=== PATIENT | female | born 1930 | race Caucasian/White ===

== ENCOUNTER → 2017-06-20 | Outpatient (CLI) | payer MEDICARE, OTHER ==
[2015-08-06 06:00] VITALS: BP 145/81
--- NOTE | 2017-06-20 17:17 | RAD ---
DATE: 06/20/2017 EXAM: MAMMO HAVEN SCREENING BILATERAL HISTORY: Routine screening COMPARISON: 07/14/2010 This study was interpreted with the benefit of Computerized Aided Detection (CAD). The breast parenchyma shows scattered fibroglandular densities. Breast parenchyma level B. FINDINGS: 2-D and 3-D tomosynthesis imaging was performed in CC and MLO projections. No new or enlarging breast densities are seen. Benign type calcifications are present. No suspicious microcalcifications have developed. IMPRESSION: Stable mammograms without evidence of malignancy. BI-RADS CATEGORY: 2 BENIGN FINDING(S) RECOMMENDED FOLLOW-UP: 12M 12 MONTH FOLLOW-UP PQRS compliance statement: Patient information was entered into a reminder system with a target due date for the next mammogram. Mammography is a sensitive method for finding small breast cancers, but it does not detect them all and is not a substitute for careful clinical examination. A negative mammogram does not negate a clinically suspicious finding and should not result in delay in biopsying a clinically suspicious abnormality. "Our facility is accredited by the [employer] Mammography [employer]."
== END | disposition home or self-care (01) ==
LOC: MAMMO 13:51
PROVIDERS: ATTEND Family Medicine
DX: Z12.31 Encounter for screening mammogram for malignant neoplasm of breast (principal)
CPT/HCPCS: 77063; G0202; 77067

== ENCOUNTER → 2018-06-23 | Outpatient (CLI) | payer MEDICARE, OTHER ==
[2015-08-06 06:00] VITALS: BP 145/81
--- NOTE | 2018-06-24 16:14 | RAD ---
Indication: Postmenopausal screening for osteoporosis. Follow-up study. COMPARISON: May 03, 2016.. Bone Density: -BMD: (g/cm2) - AP Spine Total (L1-L4).......... 0.859. - Total right Hip................. 0.659. T-Score: - AP Spine Total (L1-L4)......... -2.7. - Total right Hip................. -2.4. Z-Score: - AP Spine Total (L1-L4).......... -1.1. - Total right Hip................. -0.3. World Health Organization criteria for BMD interpretation classify patients as Normal (T-score at or above -1.0), Osteopenic (T-score between -1.0 and -2.5), or Osteoporotic (T-score at or below -2.5). Impression: 1. AP Spine Total L1-L4--- osteoporosis. Since the previous study, there has been an increase in the BMD of approximately 9%. 2. Total right Hip--- osteopenia. Since the previous study, there has been no significant change. Electronically signed by: Lacho Sandra MD (06/24/2018 4:11 PM) [id number]
--- NOTE | 2018-06-24 16:52 | RAD ---
DATE: 06/23/2018 EXAM: DIGITAL SCREEN BILAT W/CAD HISTORY: Routine screening COMPARISON: 07/14/2010, 06/20/2017 screening mammographic exams This study was interpreted with the benefit of Computerized Aided Detection (CAD). Breast Density: SCATTERED The breast parenchyma shows scattered fibroglandular densities. Breast parenchyma level B. FINDINGS: Benign-appearing left axillary lymph node is present. No suspicious calcification cluster or mass. No distortion in the interval. IMPRESSION: Benign findings. BI-RADS CATEGORY: 2 BENIGN FINDING(S) RECOMMENDED FOLLOW-UP: 12M 12 MONTH FOLLOW-UP PQRS compliance statement: Patient information was entered into a reminder system with a target due date in one year for the next mammogram. Mammography is a sensitive method for finding small breast cancers, but it does not detect them all and is not a substitute for careful clinical examination. A negative mammogram does not negate a clinically suspicious finding and should not result in delay in biopsying a clinically suspicious abnormality. "Our facility is accredited by the [employer] Mammography [employer]."
== END | disposition home or self-care (01) ==
LOC: MAMMO 14:00
PROVIDERS: ATTEND Family Medicine
DX: Z12.31 Encounter for screening mammogram for malignant neoplasm of breast (principal); M81.0 Age-related osteoporosis without current pathological fracture; M85.88 Other specified disorders of bone density and structure, other site
CPT/HCPCS: 77067; 77080

== ENCOUNTER → 2021-11-24 | Outpatient (CLI) | payer MEDICARE, OTHER ==
[2015-08-06 06:00] VITALS: BP 145/81
--- NOTE | 2021-11-24 11:49 | RAD ---
INDICATION: 89 years of age asymptomatic female patient presents for screening mammography. TECHNIQUE: Full field craniocaudal and mediolateral oblique images of both breasts were obtained usi ng digital technique without tomosynthesis and also analyzed with computer-aided detection software. COMPARISON: Prior mammographic imaging dating back to 06/23/2018. BREAST COMPOSITION: Category B: There are scattered fibroglandular densities. FINDINGS: Right breast: Focal asymmetry at the 11:00 position, middle depth. There is a small asymmetry appreci ated on the MLO projection along the posterior nipple line approximately 7.7 cm deep to the nipple. Left breast: No suspicious masses, architectural distortion, or suspicious calcifications. The visualized axillae are unremarkable. IMPRESSION: 1. Focal asymmetry in the upper quadrant, middle depth of the right breast. There is also a asymmetry along the posterior nipple line, posterior depth of the right breast appreciated on the MLO projecti on. Additional evaluation with diagnostic right breast mammogram with spot compression. Additional ev aluation with right breast ultrasound may also be considered, if indicated. 2. No mammographic evidence of malignancy in the left breast. RECOMMENDATION: The patient will be contacted to return for additional imaging and a supplemental rep ort will follow. BIRADS 0: INCOMPLETE - NEED ADDITIONAL IMAGING EVALUATION AND/OR PRIOR MAMMOGRAMS FOR COMPARISON. This study was interpreted with the benefit of Computerized Aided Detection (CAD). Patient information is entered into the reminder system with a target due date for the next screening mammogram. Mammography is the most sensitive method for finding small breast cancers, but it does not detect the m all and is not a substitute for careful clinical examination. A negative mammogram does not negate a clinically suspicious finding and should not result in delay in biopsying a clinically suspicious a bnormality. "Our facility is accredited by the [employer] Mammography [employer]." Electronically signed by: Rickey Buckner DO (11/24/2021 11:47 AM) [id number]
== END ==
LOC: MAMMO 10:48
PROVIDERS: ATTEND Family Medicine
DX: Z12.31 Encounter for screening mammogram for malignant neoplasm of breast (principal)
CPT/HCPCS: 77067

== ENCOUNTER → 2021-12-12 | Outpatient (CLI) | payer MEDICARE, OTHER ==
[2015-08-06 06:00] VITALS: BP 145/81
--- NOTE | 2021-12-12 12:27 | RAD ---
EXAM: Right breast diagnostic mammogram with tomosynthesis; right breast sonogram. HISTORY: 89-year-old female presents for evaluation of asymmetry within the right breast demonstrated on a screening mammogram dated 11/24/2021. TECHNIQUE: Full-field digital 2D and 3D tomosynthesis images and spot compression images of the right breast are obtained for evaluation. Sonographic imaging of the right breast was also performed. COMPARISON: 11/24/2021 BREAST PARENCHYMAL DENSITY: Level B - Scattered fibroglandular densities. FINDINGS: There is no present finding of concern within the right breast with the additional mammogra phic views. The asymmetry of concern likely corresponds with summation artifact on the prior exam. Sonographic imaging of the right breast demonstrates a 5 mm cyst or focally dilated duct at the 11:00 position 3 cm from the nipple. There is no suspicious sonographic finding. There is a benign-appeari ng right axillary lymph node. IMPRESSION: 1. No persistent suspicious mammographic or sonographic finding. 2. BI-RADS Category 2: Benign finding(s). RECOMMENDATION: Annual mammography is recommended if deemed clinically indicated in this 89-year-old patient. If your mammogram demonstrates that you have dense breast tissue, which could hide abnormalities, and if you have other risk factors for breast cancer that have been identified, you might benefit from s upplemental screening tests that may be suggested by your ordering physician. Dense breast tissue, i n and of itself, is a relatively common condition. This information is not provided to cause undue c oncern, but rather to raise your awareness and to promote discussion with your physician regarding th e presence of other risk factors, in addition to dense breast tissue. A report of your mammography re sults will be sent to you and your physician. You should contact your physician if you have any ques tions or concerns regarding this report. Mammography is a sensitive method for finding small breast cancers, but it does not detect them all a nd is not a substitute for careful clinical examination. A negative mammogram does not negate a clin ically suspicious finding and should not result in delay in biopsying a clinically suspicious abnorma lity. PQRS compliance statement - Patient information was entered into a reminder system with a target due date for the next mammogram. "Our facility is accredited by the [employer] Mammography [employer]." Electronically signed by: Amelia Méndez MD (12/12/2021 12:24 PM) [id number]
== END ==
LOC: MAMMO 10:57
PROVIDERS: ATTEND Family Medicine
DX: R92.8 Other abnormal and inconclusive findings on diagnostic imaging of breast (principal)
CPT/HCPCS: 76641; 77065

== ENCOUNTER → 2021-12-26 | Outpatient (CLI) | payer MEDICARE, OTHER ==
[2015-08-06 06:00] VITALS: BP 145/81
--- NOTE | 2021-12-26 15:35 | RAD ---
CT scan of the chest without contrast 12/26/2021 CLINICAL HISTORY: Lung nodule. TECHNIQUE: Unenhanced, contiguous, 0.625 mm axial sections were obtained through the chest and upper abdomen. 3 mm reconstructed sagittal, axial and coronal images were obtained. One or more of the following individualized dose reduction techniques were utilized for this study: 1. Automated exposure control. 2. Adjustment of the mA and/or kV according to patient size. 3. Use of iterative reconstruction technique. FINDINGS: An occlusion device is seen within the atrial appendage. Atherosclerotic calcification of t he thoracic aorta is seen. The thoracic aorta is tortuous but tapers normally. Calcified right hilar and subcarinal lymph nodes are noted. These measure 3 mm to 2.3 cm in size. The heart is mildly enlar ged. No hilar, mediastinal or axillary lymphadenopathy is seen. Areas of scarring are seen involving the apices of both lungs. Areas of atelectasis are seen involvin g both lower lobes, left greater than right. A 4 mm nodular opacity is seen involving the right upper lobe (image 37 of series 2). A 4 mm nodular opacity is seen involving the superior aspect of the left lower lobe (image 44 of series 2). No addit ional pulmonary nodule is seen. No pneumothorax or pleural effusion is noted. Images through the upper abdomen demonstrate atherosclerotic calcification of the abdominal aorta. Mi ld S-shaped curvature of the thoracolumbar spine is seen. Degenerative changes are seen involving the thoracic spine. An old appearing compression fracture of the L1 vertebral body is noted. IMPRESSION: 4 mm nodular opacities are seen involving the right upper lobe and the left lower lobe. A repeat CT scan of the chest in one year is recommended to document their stability. Electronically signed by: Wade Gastelum MD (12/26/2021 3:32 PM) [id number]
== END ==
LOC: CT 13:01
PROVIDERS: ATTEND Family Medicine
DX: R91.8 Other nonspecific abnormal finding of lung field (principal); I70.0 Atherosclerosis of aorta; I51.7 Cardiomegaly; I89.8 Other specified noninfective disorders of lymphatic vessels and lymph nodes; J98.11 Atelectasis; M47.814 Spondylosis without myelopathy or radiculopathy, thoracic region; M43.8X5 Other specified deforming dorsopathies, thoracolumbar region
CPT/HCPCS: 71250